=== PATIENT | male | born 1970 | race Caucasian/White ===

== ENCOUNTER 2018-06-24 04:25 | Emergency (ER) | payer OTHER ==
[~2018-06-24] VITALS: Ht 182.9 cm; Wt 62.6 kg
[2018-06-24 05:37] LABS: ABSOLUTE BASOPHILS 0.1 thou/uL (0.0-0.2); ABSOLUTE EOSINOPHILS 0.1 thou/uL (0.0-0.7); ABSOLUTE LYMPHOCYTES 1.5 thou/uL (0.8-5.3); ABSOLUTE MONOCYTES 1.2 thou/uL (0.0-1.2); ABSOLUTE NEUTROPHILS 12.3 thou/uL (1.6-8.1); BASOPHILS 0.7 %; EOSINOPHILS 0.6 %; HEMATOCRIT 43.7 % (42.0-52.0); HEMOGLOBIN 14.7 gm/dL (14.0-18.0); LYMPHOCYTES 10.1 %; MCHC 33.7 g/dL (28.0-37.0); MONOCYTES 7.6 %; MPV 7.6 fl. (7.2-11.1); NUCLEATED RBCS 0 /100WBC; PLATELET COUNT* 279 thou/uL (150-400); RBC 4.75 mil/uL (4.50-6.00); RDW-CV 13.9 % (10.5-14.5); WBC 15.2 thou/uL (4.0-11.0)
[2018-06-24 05:52] LABS: CALCIUM 9.1 mg/dL (8.5-10.1); POTASSIUM 3.9 mmol/L (3.5-5.1)
[2018-06-24 05:56] LABS: ALBUMIN 3.7 g/dL (3.4-5.0); TOTAL BILIRUBIN 0.3 mg/dL (<0.1-1.0); TOTAL PROTEIN 6.6 g/dL (6.4-8.2)
[2018-06-24] MEDS ORDERED: OXYCODON-ACETA1 EAC1 PO (06:56)
[2018-06-24] MEDS ORDERED: FLEXERIL PO (06:56)
[2018-06-24 07:11] VITALS: BP 123/87
--- NOTE | 2018-06-24 16:06 | EKG ---
[place] [address] ELECTROCARDIOGRAM REPORT Name: KELBY PADGETT Room: [facility]#: [id number] Admission: 06/24/18 Attend Phys: Discharge: 06/24/18 Date of : 66 Report #: [id number] THIS REPORT FOR: //name// [facility] Test Date: 2018-06-24 Test Time: 04:43:37 Pat Name: KELBY PADGETT Department: Room: Gender: M Optometric Technologist: : 1970 Requested By: Sharmin Neumann Order Number: [id number] Marlon MD: Silviano Case Measurements Intervals [place] Rate: 82 P: 66 NM: 181 QRS: 80 QRSD: 81 T: 61 QT: 355 QTc: 415 Interpretive Statements Sinus rhythm Consider left ventricular hypertrophy No previous ECG available for comparison Electronically Signed On 06-24-2018 16:06:14 [employer] by Silviano Case [email or web address] <ELECTRONICALLY SIGNED> By: Silviano Case MD, [facility] 06/24/18 [id number] Silviano Case MD, FACC /EPI
== END 2018-06-24 07:12 | disposition home or self-care (01) ==
LOC: M.ERS 04:25
PROVIDERS: Emergency Medicine
DX: S22.43XA Multiple fractures of ribs, bilateral, initial encounter for closed fracture (principal); W10.9XXA Fall (on) (from) unspecified stairs and steps, initial encounter; Y93.89 Activity, other specified; Y92.89 Other specified places as the place of occurrence of the external cause; Y99.8 Other external cause status